=== PATIENT | female | born 1985 | race Two or more races ===

== ENCOUNTER 2020-09-02 16:42 | Emergency (ER) | payer MEDICAID, OTHER ==
[~2020-09-02] VITALS: Ht 154.9 cm; Wt 61.7 kg
[2020-09-02 16:50] VITALS: BP 115/77
--- NOTE | 2020-09-02 16:57 | NUR ---
Patient ambulated to bed 02 with steady/even gait.
[2020-09-02] MEDS ORDERED: MECLIZINE 25 MG TAB PO ONE (17:05)
--- NOTE | 2020-09-02 17:10 | NUR ---
Lab at bedside
--- NOTE | 2020-09-02 17:12 | NUR ---
EKG being completed at this time
--- NOTE | 2020-09-02 17:15 | NUR ---
35 y/o F brought in from home with c/c vertigo with associated N/V. Patient states she was at home yesterday and experienced an acute onset of vertigo. Patient states "it feels like my whole head is spinning." Patient reports nausea, constipation for "4-5 days but that is normal for me," +vomiting x 4-5 episodes since this morning. Patient reports no hematemesis, reports clear/watery emesis. LMP 08/05/2020. Pt denies blurry vision, hearing loss, abdominal pain, SOB, chest pain, headache, recent trauma/falls/injury. States normal intake of fluids and food. Pt placed into bus driver/monitor, bed locked in lowest position, side rails x 1. PMH: Hep C Meds: Denies NKA Sx: Tubal ligation x 10 years ago
[2020-09-02 17:23] LABS: BASOPHILS % (AUTO) 0.2 % (0.0-2.0); EOSINOPHILS % (AUTO) 0.3 % (0.0-4.0); HEMOGLOBIN 14.6 g/dL (12.0-16.0); LYMPHOCYTES # (AUTO) 1.6 K/uL (2.5-16.5); LYMPHOCYTES % (AUTO) 15.2 % (20.5-51.1); MEAN CORPUSCULAR HEMOGLOBIN 32 pg (27-31); MEAN CORPUSCULAR HGB CONC 33 g/dL (33-37); MEAN CORPUSCULAR VOLUME 95.2 fL (80-94); MONOCYTES # (AUTO) 0.5 K/uL (0.8-1.0); NEUTROPHILS # (AUTO) 8.3 K/uL (1.8-7.7); NEUTROPHILS % (AUTO) 79.3 % (42.2-75.2); PLATELET COUNT (AUTO) 318 K/uL (140-450); RED BLOOD CELL COUNT(AUTO) 4.62 MIL/uL (4.20-5.40); RED CELL DISTRIBUTION WIDTH 13.6 % (11.6-13.7); WHITE BLOOD COUNT (AUTO) 10.4 K/uL (4.8-10.8)
--- NOTE | 2020-09-02 17:35 | NUR ---
Dr. Osullivan is evaluating patient at bedside.
[2020-09-02 17:36] LABS: ALBUMIN 4.1 g/dL (3.4-5.0); CARBON DIOXIDE 31.8 mmol/L (21-32); CREATININE 0.7 mg/dL (0.6-1.3); POTASSIUM 3.8 mmol/L (3.5-5.1)
--- NOTE | 2020-09-02 18:35 | NUR ---
Patient resting in semi-fowlers in position of comfort with lights dimmed. Patient remains on night monitor. Respirations even/unlabored. Bed locked in lowest position, side rails x 1, call light in reach.
[2020-09-02] MEDS ORDERED: ONDANSETRON 4 MG/2 ML VIAL IVP ONE (19:20)
--- NOTE | 2020-09-02 19:20 | NUR ---
Report and transfer of care given to ADAIR Limon.
--- NOTE | 2020-09-02 19:21 | NUR ---
Received report from day shift nurse (Panchito). Patient in bed resting, verbalized mild headace 3/10 at this time. Patient denies any abdominal pain. Safety measures in place, will continue to monitor.
[2020-09-02] MEDS ORDERED: NACL 0.9% 1,000 ML IV ONE ×2 (20:05)
--- NOTE | 2020-09-02 20:14 | NUR ---
ZOFRAN GIVEN ORDERED. PT PROVIDED WITH JELLO AND WATER REQUESTED.
[2020-09-02] MEDS ORDERED: ONDA-24 SL (20:56)
[2020-09-02] MEDS ORDERED: MECL-303 PO (20:57)
[2020-09-02 21:50] VITALS: BP 132/78
--- NOTE | 2020-09-02 21:50 | NUR ---
Patient discharged with v/s stable. Written and verbal after care instructions given and explained. Patient alert, oriented and verbalized understanding of instructions. Ambulatory with steady gait. All questions addressed prior to discharge. ID band removed. Patient advised to follow up with PMD. Rx of ANTIVERT, ZOFRAN given. Patient educated on indication of medication including possible reaction and side effects. Opportunity to ask questions provided and answered.
== END 2020-09-02 21:50 | disposition home or self-care (01) ==
LOC: MED 16:42
DX: H81.399 Other peripheral vertigo, unspecified ear (principal)
CPT/HCPCS: 36415; 80053; 84703; 85025; 93005; 96361; 96374; 99284; J2405; J7030; J8597; 99285